=== PATIENT | male | born 1980 | race Caucasian/White ===

== ENCOUNTER 2016-09-09 22:01 | Emergency (ER) | payer MEDICAID | END 2016-09-10 01:06 | disposition home or self-care (01) | LOC: D.ER 22:01 | DX: M25.422 Effusion, left elbow (principal); F17.200 Nicotine dependence, unspecified, uncomplicated; F31.89 Other bipolar disorder ==

== ENCOUNTER 2018-04-06 23:45 | Emergency (ER) | payer SELFPAY ==
[~2018-04-06] VITALS: Ht 182.9 cm; Wt 76.4 kg
[2018-04-06 23:49] VITALS: Ht 182.9 cm; Wt 76.4 kg
[2018-04-06] MEDS ORDERED: DEPAKOTE500 MG PO (23:51)
[2018-04-06] MEDS ORDERED: INVEGA 3 MG ER T3 MG PO (23:51)
[2018-04-07] MEDS ORDERED: BACTRIM DS1 TAB PO (01:01)
[2018-04-07] MEDS ORDERED: ULTRAM50 MG PO (01:01)
[2018-04-07 01:23] VITALS: BP 144/87
== END 2018-04-07 01:24 | disposition home or self-care (01) ==
LOC: D.ER 23:45
DX: L02.01 Cutaneous abscess of face (principal); L70.8 Other acne; F17.200 Nicotine dependence, unspecified, uncomplicated